=== PATIENT | male | born 1995 | race Two or more races ===

== ENCOUNTER → 2021-12-30 | Outpatient (CLI) | payer OTHER ==
[~2021-12-30] MED LIST: ISOVUE-300 61% 50ML VIAL As Ordered ONE; LIDOCAINE 1% MDV 20ML VIAL As Ordered ONE; TRIAMCINOLONE ACETONIDE SUSP 40 MG/ML VIAL (J3301) As Ordered ONE
== END ==
LOC: M RADPRO 14:48
PROVIDERS: ATTEND Physician Assistant Surgical
DX: S73.122D Ischiocapsular ligament sprain of left hip, subsequent encounter (principal)
CPT/HCPCS: 20610; 77002; J3301; Q9967